=== PATIENT | female | born 1985 ===

== ENCOUNTER 2019-10-16 10:23 | Emergency (ER) | payer OTHER ==
[~2019-10-16] VITALS: Ht 167.6 cm; Wt 122.5 kg
== END 2019-10-16 14:17 | disposition home or self-care (01) ==
LOC: ER 10:23
DX: R10.2 Pelvic and perineal pain (principal)

== ENCOUNTER 2019-12-11 11:27 | Outpatient (CLI) | payer OTHER | END 2019-12-11 11:36 | disposition home or self-care (01) | LOC: RX STUDY 11:27 | PROVIDERS: ATTEND Obstetrics & Gynecology | DX: N97.8 Female infertility of other origin (principal) ==

== ENCOUNTER 2020-07-23 19:40 | Emergency (ER) | payer OTHER ==
[~2020-07-23] VITALS: Ht 167.6 cm; Wt 122.5 kg
[2020-07-23] MEDS ORDERED: CABERGOLINE0.5 MG PO (20:15)
== END 2020-07-24 13:46 | disposition home or self-care (01) ==
LOC: ER 19:40
DX: O00.81 Other ectopic pregnancy with intrauterine pregnancy (principal); O08.1 Delayed or excessive hemorrhage following ectopic and molar pregnancy; O36.80X0 Pregnancy with inconclusive fetal viability, not applicable or unspecified; O26.851 Spotting complicating pregnancy, first trimester; O34.11 Maternal care for benign tumor of corpus uteri, first trimester; Z3A.01 Less than 8 weeks gestation of pregnancy

== ENCOUNTER 2020-08-06 18:44 | Inpatient (IN) | payer OTHER ==
[~2020-08-06] VITALS: Ht 167.6 cm; Wt 127.0 kg
--- NOTE | 2020-08-06 19:10 | NUR ---
SE RECIBE PTE ALERTA, ORIENTADA EN JOSE MYRA ESFERAS. PTE REFIERE DR CASTILLO LA ENVIA YA QUE LE REALIZARA UN PROCEDIMIENTO POR EMBARAZO ECTOPICO.
--- NOTE | 2020-08-06 19:52 | NUR ---
PACIENTE EVALUADA POR DR. KRAMER. MR. ROBERTSON COLECTA MUESTRAS DE ANGELA PATRICIA ORDEN MEDICA Y SIGUIENDO TECNICAS ASEPTICAS. SE ORIENTA A PACIENTE SOBRE TRATAMIENTO. PACIENTE REFIERE ENTENDER. SE ENVIAN MUESTRAS DE LABORATORIO ROTULADAS.
== END 2020-08-08 12:24 | disposition home or self-care (01) | DRG 819 ==
LOC: ER 18:44 → SEC-K 21:16 → OB/GYN 21:16
PROVIDERS: ADMIT Obstetrics & Gynecology; ATTEND Obstetrics & Gynecology
PROC: 0UB50ZZ Excision of Right Fallopian Tube, Open Approach (ICD-10-PCS; 2020-08-06)
PROC: 10T20ZZ Resection of Products of Conception, Ectopic, Open Approach (ICD-10-PCS; principal; 2020-08-06 21:00)
DX: O00.101 Right tubal pregnancy without intrauterine pregnancy (principal); Z20.822 Contact with and (suspected) exposure to COVID-19

== ENCOUNTER → 2020-08-06 | Outpatient (CLI) | payer OTHER ==
[~2020-08-06] MED LIST: CABERGOLINE0.5 MG PO
== END | disposition home or self-care (01) ==
LOC: PRENATAL 16:04
PROVIDERS: ATTEND Obstetrics & Gynecology Maternal & Fetal Medicine
DX: O26.851 Spotting complicating pregnancy, first trimester (principal); O34.11 Maternal care for benign tumor of corpus uteri, first trimester; O36.80X1 Pregnancy with inconclusive fetal viability, fetus 1; Z36.89 Encounter for other specified antenatal screening; Z3A.08 8 weeks gestation of pregnancy